=== PATIENT | female | born 1990 | race Asian ===

== ENCOUNTER 2020-10-14 13:25 | Inpatient (IN) | payer OTHER ==
[2020-10-14 14:46] VITALS: BMI 27.2
[2020-10-14 14:49] LABS: BASO % 0.6 % (0-2.0); EOS % 0.8 % (0-4.5); HEMATOCRIT 39.7 % (32.4-45.2); HEMOGLOBIN 13.7 GM/dL (10.7-15.3); MCH 30.5 pg (25.7-33.7); MCHC 34.4 g/dl (32.0-36.0); MEAN CELL VOLUME 88.6 fl (80-96); MONO % 6.7 % (3.8-10.2); NEUT % 82.9 % (42.8-82.8); PLATELET COUNT 140 K/MM3 (134-434); RBC 4.48 M/mm3 (3.60-5.2); RDW 13.9 % (11.6-15.6); WHITE BLOOD COUNT 15.9 K/mm3 (4.0-10.0)
[2020-10-14 14:59] LABS: INR 0.9 (0.83-1.09); PROTHROMBIN TIME (PATIENT) 10.9 SEC (9.7-13.0)
[2020-10-14] MEDS ORDERED: CITRIC ACID/SODIUM CITRATE 30 ML UNIT-DOSE CUP PO ONE (15:00)
[2020-10-14] MEDS ORDERED: DEXTROSE 5%-LACTATED RINGERS 1,000 ML IV SCH (15:00)
[2020-10-14] MEDS ORDERED: OXYTOCIN 30 UNITS in 0.9% NS 30 UNIT/500 ML INFUS.BAG IVPB ONE (15:01)
[2020-10-14 15:02] LABS: ACTIVATED PTT 27.9 SECONDS (25.2-36.5)
[2020-10-14 15:11] LABS: POTASSIUM 3.7 mmol/L (3.5-5.1)
[2020-10-14 15:13] LABS: BLOOD UREA NITROGEN 6.9 mg/dL (7-18)
[2020-10-14] MEDS ORDERED: OXYTOCIN 30 UNITS in 0.9% NS 30 UNIT/500 ML INFUS.BAG IVPB SCH (15:15)
[2020-10-14 15:16] LABS: CALCIUM 8.7 mg/dL (8.5-10.1); CREATININE 0.4 mg/dL (0.55-1.3)
[2020-10-14 16:08] LABS: HIV INTERPRETATION NEGATIVE (NEGATIVE)
[2020-10-14] MEDS ORDERED: BUTORPHANOL TARTRATE 2 MG/ML VIAL ONE (17:35)
[2020-10-14] MEDS ORDERED: PROMETHAZINE HCL 25 MG/1 ML VIAL ONE (17:35)
[2020-10-14] MEDS ORDERED: BUTORPHANOL TARTRATE 2 MG/ML VIAL IVPUSH ONE (17:39)
[2020-10-14] MEDS ORDERED: PROMETHAZINE HCL 25 MG/1 ML VIAL IVPUSH ONE (17:39)
[2020-10-14] MEDS ORDERED: NALOXONE HCL 0.4 MG/ML VIAL IVPUSH PRN (21:23)
[2020-10-14] MEDS ORDERED: FENTANYL/BUPIVACAINE/NS/PF - PCEA - 50 ML DISP.SYRIN EP ONE (21:34)
[2020-10-15] MEDS ORDERED: FENTANYL/BUPIVACAINE/NS/PF - PCEA - 50 ML DISP.SYRIN EP ONE ×5 (02:17→13:35)
[2020-10-15] MEDS ORDERED: PCA PUMP NR ONE ×3 (02:18→07:42)
[2020-10-15] MEDS: LEVOTHYROXINE NA 75 MCG TABLET (FP) PO SCH (07:31)
[2020-10-15] MEDS ORDERED: oxyCODONE HCL 5 MG TABLET PO PRN ×2 (14:29)
[2020-10-15] MEDS ORDERED: BENZOCAINE 28 GM HEMORRHOIDAL OINTMENT RC PRN (14:29)
[2020-10-15] MEDS ORDERED: METHYLERGONOVINE MALEATE 0.2 MG/1 ML AMP IM PRN (14:29)
[2020-10-15] MEDS ORDERED: diphenhydrAMINE HCL 25 MG CAPSULE (FP) PO PRN (14:29)
[2020-10-15] MEDS ORDERED: LIDO 2%/EPI 1:200000 PRESRVFRE (20 ML SDVIAL) ONE (14:29)
[2020-10-15] MEDS ORDERED: WITCH HAZEL 50% (TUCKS) 40 PAD/JAR PAD TP PRN (14:29)
[2020-10-15] MEDS ORDERED: BENZOCAINE 20% 57 GM BOTTLE TP PRN (14:29)
[2020-10-15] MEDS ORDERED: OXYTOCIN 20 UNITS in 0.9% NS 20 UNIT/1,000 ML INFUS.BAG IV SCH (14:30)
[2020-10-15] MEDS ORDERED: ceFAZolin SODIUM 1 GM VIAL ONE (14:36)
[2020-10-15] MEDS ORDERED: ONDANSETRON 4 MG/2 ML VIAL ONE (14:36)
[2020-10-15] MEDS ORDERED: ePHEDrine SULFATE 50 MG/1 ML AMPULE ONE (14:36)
[2020-10-15] MEDS ORDERED: OXYTOCIN 10 UNITS/ML VIAL ONE (14:36)
[2020-10-15] MEDS ORDERED: PHENYLEPHRINE HCL 10 MG/1 ML SINGLE DOSE VIAL ONE (14:36)
[2020-10-15] MEDS ORDERED: KETOROLAC TROMETHAMINE 30 MG/1 ML VIAL ONE (14:36)
[2020-10-15] MEDS ORDERED: SUCCINYLCHOLINE CHLORIDE 200 MG/10 ML SYRINGE ONE (14:39)
[2020-10-15 16:16] LABS: CORD BASE EXCESS -3.1 mmol/L (0-2); CORD BASE EXCESS -3.8 mmol/L (0-2); CORD HCO3 21.9 mmHg (20-29); CORD HCO3 22.1 mmHg (20-29); CORD PCO2 39.1 mmHg (30-78); CORD PCO2 43.5 mmHg (30-78); CORD pH 7.324 (7.14-7.44); CORD pH 7.366 (7.14-7.44)
[2020-10-15] MEDS: IBUPROFEN 800 MG/8 ML IJ IVPB PRN (17:22)
[2020-10-15] MEDS: CEFAZOLIN 1 GM/D5W 1 GM/50 ML BAG IVPB SCH (18:32)
[2020-10-15] MEDS: DEXTROSE 5%-LACTATED RINGERS 1,000 ML IV SCH (19:24)
[2020-10-15] MEDS: FENTANYL/BUPIVACAINE/NS/PF - PCEA - 50 ML DISP.SYRIN EP SCH ×2 (19:24→22:52)
[2020-10-16] MEDS: CEFAZOLIN 1 GM/D5W 1 GM/50 ML BAG IVPB SCH (01:46)
[2020-10-16] MEDS: IBUPROFEN 800 MG/8 ML IJ IVPB PRN (05:45)
[2020-10-16] MEDS: LEVOTHYROXINE NA 75 MCG TABLET (FP) PO SCH (06:23)
[2020-10-16 08:32] LABS: BASO % 0.6 % (0-2.0); EOS % 0.9 % (0-4.5); HEMATOCRIT 27.6 % (32.4-45.2); HEMOGLOBIN 9.6 GM/dL (10.7-15.3); LYMPH % 10.6 % (8-40); MCH 30.9 pg (25.7-33.7); MCHC 34.7 g/dl (32.0-36.0); MEAN CELL VOLUME 89.1 fl (80-96); MEAN PLT VOLUME 10.8 fl (7.5-11.1); MONO % 8.3 % (3.8-10.2); NEUT % 79.6 % (42.8-82.8); PLATELET COUNT 100 K/MM3 (134-434); RBC 3.09 M/mm3 (3.60-5.2); RDW 13.9 % (11.6-15.6)
[2020-10-16 09:59] LABS: ANISOCYTOSIS 1+; MACROCYTOSIS 0; PLATELET ESTIMATE DECREASED
[2020-10-16] MEDS: SIMETHICONE 80 MG TAB.CHEW (FP) PO PRN ×2 (10:04→22:26)
[2020-10-16] MEDS ORDERED: ACETAMINOPHEN 325 MG TABLET (FP) ONE (13:04)
[2020-10-16] MEDS: ACETAMINOPHEN 325 MG TABLET (FP) PO PRN ×2 (13:08→22:24)
[2020-10-16] MEDS: IBUPROFEN 600 MG TABLET (FP) PO PRN ×2 (13:09→22:25)
[2020-10-16] MEDS ORDERED: BISACODYL 10 MG SUPP.RECT PR PRN (14:29)
[2020-10-16] MEDS: DEXTROSE 5%-LACTATED RINGERS 1,000 ML IV SCH (21:19)
[2020-10-16] MEDS: SENNOSIDES/DOCUSATE COMBO (SENNA PLUS) TABLET (UD) PO PRN (22:26)
[2020-10-17] MEDS: LEVOTHYROXINE NA 75 MCG TABLET (FP) PO SCH (07:00)
[2020-10-17] MEDS: ACETAMINOPHEN 325 MG TABLET (FP) PO PRN ×2 (07:01→20:53)
[2020-10-17] MEDS: IBUPROFEN 600 MG TABLET (FP) PO PRN (07:01)
[2020-10-17] MEDS: SIMETHICONE 80 MG TAB.CHEW (FP) PO PRN ×2 (07:01→20:56)
[2020-10-17] MEDS: SENNOSIDES/DOCUSATE COMBO (SENNA PLUS) TABLET (UD) PO PRN (20:49)
[2020-10-17] MEDS ORDERED: SENNOSIDES/DOCUSATE COMBO (SENNA PLUS) TABLET (UD) PO PRN (22:00)
[2020-10-17] MEDS: DEXTROSE 5%-LACTATED RINGERS 1,000 ML IV SCH (23:44)
[2020-10-18] MEDS: LEVOTHYROXINE NA 75 MCG TABLET (FP) PO SCH (06:07)
[2020-10-18 08:36] LABS: BASO % 0.5 % (0-2.0); EOS % 2.8 % (0-4.5); HEMATOCRIT 30.7 % (32.4-45.2); HEMOGLOBIN 10.3 GM/dL (10.7-15.3); LYMPH % 14.5 % (8-40); MCH 30.3 pg (25.7-33.7); MCHC 33.5 g/dl (32.0-36.0); MEAN CELL VOLUME 90.3 fl (80-96); MEAN PLT VOLUME 10.7 fl (7.5-11.1); MONO % 5.7 % (3.8-10.2); NEUT % 76.5 % (42.8-82.8); PLATELET COUNT 133 K/MM3 (134-434); RDW 13.7 % (11.6-15.6); WHITE BLOOD COUNT 13.7 K/mm3 (4.0-10.0)
[2020-10-18 10:38] VITALS: BP 118/74; PULSE 79; TEMP 98
[2020-10-18 12:53] LABS: ANISOCYTOSIS 1+; MACROCYTOSIS 0; PLATELET ESTIMATE DECREASED
[2020-10-19] MEDS ORDERED: LEVOTHYROXINE NA 50 MCG TABLET (FP) PO SCH (07:00)
== END 2020-10-18 18:15 | disposition home or self-care (01) | DRG 788 ==
LOC: JDEL 13:25 → JLDR 13:40 → J3W 10-15 17:00
PROVIDERS: ADMIT Obstetrics & Gynecology; ATTEND Obstetrics & Gynecology
PROC: 10D00Z1 Extraction of Products of Conception, Low, Open Approach (ICD-10-PCS; principal; 2020-10-15)
DX: O62.0 Primary inadequate contractions (principal); O69.81X0 Labor and delivery complicated by cord around neck, without compression, not applicable or unspecified; Z3A.38 38 weeks gestation of pregnancy; Z37.0 Single live birth
CPT/HCPCS: 36415; 36600; 80048; 82803; 85025; 85610; 85730; 86780; 86850; 86900; 86901; 87389; C9803; U0003